=== PATIENT | female | born 1930 | race Caucasian/White ===

== ENCOUNTER 2018-02-14 05:21 | Inpatient (IN) ==
[2018-02-14 05:44] VITALS: BMI 34.0
[2018-02-14] MEDS ORDERED: ACETAMINOPHEN 500 MG TABLET PO ONE (06:00)
[2018-02-14] MEDS ORDERED: FAMOTIDINE PB 20 MG/50 ML BAG IV ONE (06:00)
[2018-02-14] MEDS ORDERED: LIDOCAINE 1% (10mg/ml) 2mL INJ PF SDV ID ONE (06:00)
[2018-02-14] MEDS ORDERED: METOCLOPRAMIDE 10mg/2ml INJECTION IVP ONE (06:00)
[2018-02-14] MEDS ORDERED: ONDANSETRON 4 MG/2 ML INJECTION IVP ONE (06:00)
[2018-02-14] MEDS: NS 1,000 ML IV SCH ×4 (06:07→22:53)
[2018-02-14] MEDS ORDERED: VANCOMYCIN 1,000 MG INJECTION ONE (06:13)
[2018-02-14] MEDS: NOZIN NASAL SWAB NAS SCH ×6 (06:13→21:12)
[2018-02-14] MEDS ORDERED: CEFAZOLIN 1 G INJECTION IVP ONE (06:21)
[2018-02-14] MEDS ORDERED: MIDAZOLAM 2mg/2ml INJECTION ONE (07:01)
[2018-02-14] MEDS ORDERED: PROPOFOL 500 MG/50 ML VIAL ONE (07:05)
[2018-02-14] MEDS ORDERED: BUPIVACAINE 0.5% (5mg/ml) PF 30ml INJ SDV ONE (07:07)
[2018-02-14] MEDS ORDERED: LIDOCAINE 2% (100mg/5mL) 5ml PF SDV ONE ×2 (07:07→07:23)
[2018-02-14] MEDS ORDERED: PHENYLEPHRINE INJ 10 MG/ML VIAL IV ONE (07:50)
[2018-02-14] MEDS ORDERED: EPINEPHrine PF 0.25 MG, BUPIVACAINE 0.25% PF 30 ML, KETOROLAC INJ 60 MG in NS 30 ML OPSITE ONE (08:00)
[2018-02-14] MEDS ORDERED: VANCOMYCIN 1,000 MG INJECTION IAR ONE (08:15)
--- NOTE | 2018-02-14 08:43 | Anesthesia Preoperative Report ---
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 NPO Since Date: 02/13/18 NPO Since Time: 23:00 Allergies/Adverse Reactions: Allergies Allergy/AdvReac Type Severity Reaction Status Date / Time silver sulfadiazine Allergy Rash Verified 02/14/18 06:29 [From Silvadene] Sulfa (Sulfonamide Allergy Rash Verified 02/14/18 06:30 Antibiotics) atorvastatin [From Lipitor] AdvReac Muscle Pain Verified 02/14/18 06:29 - Vital Signs Vital Signs: Temperature 97.9 F 02/14/18 05:43 Pulse Rate 94 02/14/18 06:35 Respiratory Rate 15 02/14/18 05:43 Blood Pressure 168/76 H 02/14/18 06:35 Pulse Oximetry 92 02/14/18 05:43 Height and Weight: Height 4 ft 10 in Weight 74 kg Body Mass Index 34.0 - Medications Inpatient Medications: Current Medications Epinephrine HCl 0.25 mg/Bupivacaine HCl 30 ml/Ketorolac Tromethamine 60 mg/ Sodium Chloride 62.25 mls @ 1 mls/hr OPSITE INTRAOP ONE PRN Reason: Protocol Stop: 02/16/18 22:14 Last Admin: 02/14/18 08:30 Dose: 1 mls/hr Sodium Chloride (Normal Saline) 1,000 mls @ 50 mls/hr IV .Q20H [facility] Last Admin: 02/14/18 08:08 Dose: 50 mls/hr Isopropyl Alcohol (Nozin Nasal Swab) 1 each EMIL Q1M IMAN Stop: 02/14/18 09:18 Last Admin: 02/14/18 06:20 Dose: 1 each Sodium Chloride (Iv Flush) 10 - 80 ml IV PRN PRN PRN Reason: Flushing Tranexamic Acid (Cyklokapron) 1,000 mg TOP INTRAOP ONE Stop: 02/14/18 09:03 Last Admin: 02/14/18 08:30 Dose: 1,000 mg Home Medications: Home Medications Medication Instructions Recorded Confirmed Type Amaryl (glimepiride) 4 mg tablet 4 mg PO BID tab 09/24/17 02/14/18 History Glucophage (metformin) 1,000 mg 1,000 mg PO BID tab 09/24/17 02/14/18 History tablet Hyzaar (losartan 100 1 tab PO HS tab 09/24/17 02/14/18 History mg-hydrochlorothiazide 12.5 mg) tablet Norvasc (amlodipine) 5 mg tablet 5 mg PO DAILY tab 09/24/17 02/14/18 History Zocor (simvastatin) 40 mg tablet 40 mg PO HS 09/24/17 02/14/18 History chondroitin sulfate A sodium 400 600 mg PO DAILY cap 09/24/17 02/14/18 History mg capsule glucosamine 1,500 mg PO DAILY tab 09/24/17 02/14/18 History HCl-methylsulfonylmethane 750 mg-750 mg tablet levothyroxine (Tirosint) 100 mcg 100 mcg PO HS cap 09/24/17 02/14/18 History capsule multivit with 1 tab PO DAILY tab 09/24/17 02/14/18 History hwjguhhf-fqul-EF-lutein 8 mg iron-400 mcg-300 mcg tablet CloNIDine [Catapres] 0.1 mg PO BID 01/30/18 02/14/18 History Latanoprost [Latanoprost] 1 drop EACH EYE HS 01/30/18 02/14/18 History Organic Sulfur Msm 1,000 mg PO DAILY 01/30/18 02/14/18 History ergocalciferol (vitamin D2) 50,000 50,000 unit PO DAILY #2 cap 01/30/18 Rx unit capsule Aspirin/Calcium Carbonate/Mag 325 mg PO BID 02/05/18 02/14/18 History [Aspirin Buffered 325 mg Tab] Oxymetazoline Nasal [place] [Afrin 2 spray EA NOSTRIL BID 02/05/18 02/14/18 History Nasal [place]] - Medical History Respiratory: DENIES: Sleep Apnea Cardiovascular: Reports: Hypertension, High Cholesterol DENIES: Angina Gastrointestional: DENIES: Gastroesophageal Reflux Disease Neuro/Musculoskeletal: Reports: [email or web address].[email or web address] Renal/Endocrine: Reports: Diabetes Mellitus Type 2, Thyroid Disease ( hypothyroidism) Other History: Comment Only: Anesthesia Reactions (NO KNOWN BLOOD RELATION ISSUES) - Surgical History HEENT Surgeries: Reports: Eye Surgery (radha cataract ext with IOL) Anesthesia Reactions: None Hx Family Anesthesia Reaction: No History of Motion Sickness: No - Social History Smoking Status: Never smoker Hx Chewing Tobacco Use: No Second Hand Exposure: No Substance Use Type: does not use Alcohol Intake Frequency: does not drink - Pertinent Findings Laboratory: CBC and BMP 02/14/18 06:00 02/14/18 06:00 BMP 02/14/18 06:00 Sodium 143 Potassium 4.0 Chloride 103 Carbon Dioxide 28 BUN 28.0 H Creatinine 0.8 Glucose 142 H Calcium 10.3 H Liver Function 02/14/18 Range/Units 06:00 Total Bilirubin 0.30 (0.20-1.30) MG/DL AST 24 (14-36) U/L ALT 21 (1-35) U/L Alkaline Phosphatase 43 (38-126) U/L Albumin 4.6 (3.5-5.0) g/dL EKG: Sinus Tachycardia - Physical Exam Respiratory Exam: Present: lungs clear, bilateral breath sounds equal Cardiovascular Exam: Present: regular rate and rhythm - Airway Assessment Mallampati Score: II TMD: 3 Fingerbreadths Neck Extension: good Overall Assessment: no airway concerns - ASA ASA Score: 3 - Plan Anesthesia: General TIVA, Neuroaxial Regional/Trunk Block: Spinal - Discussion Discussion: Discussed risks/options/alternatives of anesthesia and questions answered. Patient consents. Nursing pain assessment noted. Present for Discussion: family member (daughter) Attestation Statement: Prior to the delivery of any anesthetic medication, I examined the patient, developed the plan, obtained the patient's consent and discussed the risk and benefits of the procedure with the patient/guardian. - Additional Information Seen by Anesthesia: Yes
--- NOTE | 2018-02-14 08:48 | Operative Note ---
- Procedure Preoperative Diagnosis: Right knee primary degenerative joint disease Postoperative Diagnosis: Same as preoperative diagnosis. Surgeon: Matt Grace MD Finance Officer: Amisha Ames Complications: None. Anesthesia: Spinal. Estimated Blood Loss: See Anesthesia Record. Fluids: Please see Anesthesia Record. Description of Procedure: Mrs. Rogers and her right knee were identified and marked in the preoperative holding area. She was brought back to the operating suite. Spinal anesthetic was administered and she was placed supine on the operating table. The right lower extremity was prepped and draped in my normal sterile fashion. Timeout was performed. The C2FO robotic arm was used during the surgery. She has severe fixed varus deformity with a flexion contracture 10. A standard anterior midline incision followed by medial parapatellar arthrotomy was performed. Anterior fat pad and meniscus were removed. The patella was everted and a patellar osteotomy was performed leaving 14 mm of bone. She had complete loss of cartilage medially also a large lesions in the lateral femoral condyle. Tibial and femoral arrays and checkpoints were placed both within the original incision. The bone was then registered with the C2FO robot. Osteophytes were removed and gaps were captured both 90 and 0 with correction. Given her severe deformity we templated for 18 millimeters laterally in both flexion and extension and 16 mm medially in both flexion and extension The C2FO robotic arm was then used to assist with the bone cuts. Posterior osteophytes and remaining meniscus were removed. Trial components were placed. We used a 3 femur and a 4 tibia with a 9 mm spacer and a 32 patella. She tracked well and was well balanced throughout range of motion. The leg was exsanguinated and the tourniquet inflated to 250 mmHg. The tibia was stamped. The bone was prepared for cementing and components were cemented into place and allowed to cure in extension. The tourniquet was let down and hemostasis obtained with electrocautery. The knee was ranged one more time to ensure good stability, balance and patellar tracking. 1 g of vancomycin powder was then placed into the knee joint. The capsulotomy was then closed with #1 Vicryl. I then left my dental assistant teacher to close the subcutaneous tissue with 2-0 Vicryl and 0 V-lock. Running 4-0 Monocryl will be used in the subcuticular layer. Dermabond will be used on the skin followed by sterile dressing. After drapes are removed patient will be taken to recovery room under the care of anesthesia.
[2018-02-14] MEDS ORDERED: SALINE FLUSH 10ml SYRINGE IV PRN (09:02)
[2018-02-14] MEDS ORDERED: TRANEXAMIC ACID 1,000 MG/10 ML VIAL TOP ONE (09:02)
--- NOTE | 2018-02-14 09:49 | XRay Report ---
Indication: postoperative image PROCEDURE: XR knee RT 2V: Encounter: Initial Comparison: None. Findings: The patient has had a right knee total knee arthroplasty. The alignment is anatomic without subluxation. The mineralization appears preserved. There is no radiopaque foreign body. Impression: Anatomic alignment status post right knee arthroplasty. .
[2018-02-14] MEDS ORDERED: TRAMADOL 50 MG TABLET PO PRN (10:08)
[2018-02-14] MEDS ORDERED: NOZIN NASAL SWAB NAS ONE (10:08)
[2018-02-14] MEDS ORDERED: DiphenhydrAMINE 25 MG CAPSULE PO PRN (10:08)
[2018-02-14] MEDS ORDERED: ONDANSETRON 4 MG/2 ML INJECTION IVP PRN (10:08)
[2018-02-14] MEDS ORDERED: DiphenhydrAMINE 50 MG/ML INJECTION IVP PRN (10:08)
[2018-02-14] MEDS ORDERED: LORazepam 1 MG TABLET PO PRN (10:08)
--- NOTE | 2018-02-14 11:09 | Anesthesia Procedure Note ---
Peripheral Nerve Blockade - Procedure Physician: Rush Grace MD Date: 02/14/18 Surgical Procedure: right TKA Discussion: Discussed risks/options/alternatives of anesthesia and questions answered. Patient consents. Nursing pain assessment noted. Block Start: 09:25 Block Stop: 09:27 Blocked Employed: Adductor Canal Indication: Post-Operative Pain Approach: Right Side Confirmed Position: Supine Patient: Consent, Risks/Benefits Discussed, Informed, Post Block Act. Discussed IV Sedation: No (spinal active) Initial Vital Signs: Temperature 97.9 F 02/14/18 05:43 Temperature Source Oral 02/14/18 05:43 Pulse Rate 109 H 02/14/18 05:43 Respiratory Rate 15 02/14/18 05:43 Blood Pressure 191/85 H 02/14/18 05:43 Blood Pressure Mean 120 02/14/18 05:43 Blood Pressure Position Sitting 02/14/18 05:43 Pulse Oximetry 92 02/14/18 05:43 Oxygen Delivery Method 02/14/18 05:43 Post Vital Signs: Temperature 96.2 F L 02/14/18 10:12 Pulse Rate 97 02/14/18 10:42 Respiratory Rate 16 02/14/18 10:42 Blood Pressure 184/75 H 02/14/18 10:42 Pulse Oximetry 94 02/14/18 10:42 Initial Pain Pain Score: 0 Post Block Pain Score: 0 Prep: Chlorhexadine/ETOH Ultrasound Used?: Yes - Injectate Ropivacaine (%): 0.5 Ropivacaine (mL): 30 Was Epi 1:200,000 Used?: No Injection: Injection made incrementally with constant monitoring and negative aspiration every 5 ml
--- NOTE | 2018-02-14 12:23 | Anesthesia Postoperative Note ---
- Date and Time Date: 02/14/18 Time: 09:54 - Status Patient Participated in Evaluation: Patient Participated in Person Vital Signs: Temperature 96.2 F L 02/14/18 10:12 Pulse Rate 106 H 02/14/18 11:57 Respiratory Rate 16 02/14/18 11:57 Blood Pressure 173/86 H 02/14/18 11:57 Pulse Oximetry 96 02/14/18 11:57 Respiratory Function: Airway Patent Cardiovascular Function: Regular Pulse Mental Status: Alert and Oriented Pain Intensity: 0 Hydration: Taking PO Fluids Complications During Recover: None Apparent - Follow-Up Instructions Instructions: Per Surgeon
[2018-02-14] MEDS: ACETAMINOPHEN 325 MG TABLET PO SCH ×3 (13:13→20:51)
[2018-02-14] MEDS: CEFAZOLIN 1 G in NS 100 ML IV SCH ×2 (14:19→22:52)
[2018-02-14] MEDS: INSULIN ASPART 100unit/ml INJECTION SQ PRN (14:28)
[2018-02-14] MEDS: DOCUSATE SODIUM 100 MG CAPSULE PO SCH (20:52)
[2018-02-14] MEDS: ASPIRIN *EC* 81 MG TABLET PO SCH (20:53)
[2018-02-14] MEDS ORDERED: SIMVASTATIN 40 MG TABLET PO SCH (21:00)
[2018-02-14] MEDS ORDERED: SENNOSIDES 8.6 MG TABLET PO SCH (21:00)
[2018-02-14] MEDS ORDERED: LOSARTAN/HCTZ 100/12.5mg TABLET PO SCH (21:00)
[2018-02-14] MEDS ORDERED: LEVOTHYROXINE 100 MCG TABLET PO SCH (21:00)
[2018-02-15] MEDS: NS 1,000 ML IV SCH ×2 (03:34→11:11)
[2018-02-15] MEDS: NOZIN NASAL SWAB NAS SCH (05:38)
[2018-02-15] MEDS: INSULIN ASPART 100unit/ml INJECTION SQ PRN ×2 (05:56→09:42)
[2018-02-15 07:12] VITALS: RESP 16
--- NOTE | 2018-02-15 07:55 | Orthopedic Progress Note ---
Date: Date: 02/15/18 Time: 0750 Subjective/Severity of Illness: Karen is sitting up in the chair this morning. States she did well overnight, pain has been well controlled. She has been up ambulating. BG overnight 170-269, she received SS Novolog. Fasting BG 156. She reports a good appetite, no nausea, chest pain, soa. Orthopedic Exam Vital signs: Temperature 97.4 F 02/15/18 07:06 Pulse Rate 97 02/15/18 07:06 Respiratory Rate 16 02/15/18 07:06 Blood Pressure 184/89 H 02/15/18 07:06 Pulse Oximetry 95 02/15/18 07:06 - Constitutional General Appearance: Present: alert, orientated x3, no acute distress, well developed, well nourished - Respiratory Exam Present: CTA bilaterally, non-labored - Cardiovascular Exam Present: Regular Rate/Rhythm, pedal pulses intact - Extremities Exam Present: pulses intact - Dressing Dressing: dry, intact, bloody drainage (scant bloody drainage middle of mepilex , outlined.) - Integumentary Exam Present: pink, warm, dry - Neurological Exam Present: intact to light touch, no deficits - Psychiatric Exam Present: alert, oriented, normal affect - Labs Result Diagrams: 02/15/18 04:07 02/15/18 04:07 Abnormal lab results 02/15/18 02/15/18 Range/Units 04:07 04:07 Hgb 9.5 L D (12-16) GM/DL Hct 30.1 L D (36-46) % BUN 24.0 H (7-17) MG/DL BUN/Creatinine Ratio 30 H (6-26) RATIO Glucose 156 H (65-110) MG/DL H & H 02/14/18 02/15/18 Range/Units 06:00 04:07 Hgb 11.5 L 9.5 L D (12-16) GM/DL Hct 35.6 L 30.1 L D (36-46) % Orthopedic Assessment and Plan (1) Primary osteoarthritis of right knee Status: Acute Assessment and Plan: Current anti-coagulation protocol ASA 81mg BID x 6 weeks for VTE prophylaxis. SCD's for added protection. PT/OT services to improve independent function. Discharge Planning per Case Management. (2) Diabetes mellitus type 2 in obese Status: Acute Assessment and Plan: Will restart her metformin and Amaryl this morning. - Anticoagulation Therapy Anticoagulation: ASA 81 mg PO BID x6 weeks Hospital Course Summary Disclaimer: The visit summary below is not to be considered part of the above Progress Note.
[2018-02-15] MEDS ORDERED: GLIMEPIRIDE 4 MG TABLET PO SCH (08:15)
[2018-02-15] MEDS ORDERED: POLYETHYL GLYCOL 3350 17gm PACKET PO SCH (09:00)
[2018-02-15] MEDS ORDERED: AMLODIPINE 5 MG TABLET PO SCH (09:00)
[2018-02-15] MEDS ORDERED: METFORMIN 1,000 MG TABLET PO SCH (09:00)
[2018-02-15] MEDS ORDERED: SENNOSIDES 8.6 MG TABLET PO PRN (09:14)
[2018-02-15] MEDS: ACETAMINOPHEN 325 MG TABLET PO SCH ×2 (09:20→12:29)
[2018-02-15] MEDS: DOCUSATE SODIUM 100 MG CAPSULE PO SCH (09:20)
[2018-02-15] MEDS: ASPIRIN *EC* 81 MG TABLET PO SCH (09:20)
[2018-02-15 12:27] VITALS: BP 160/80
--- NOTE | 2018-02-15 12:29 | Orthopedic Progress Note ---
Date: Date: 02/15/18 Time: 1225 Subjective/Severity of Illness: Karen is sitting up in the chair this afternoon. Pain has been well controlled with Tylenol. She has been up ambulating and is adequately mobile. She reports a good appetite, no nausea, chest pain, soa. She had been taking a 325mg ASA BID at home for "heart health". She chose to do this on her own and was not part of a PCP or cardiac recommendation. She notes she has had some nose bleeds recently. I discussed we typically use ASA 81mg PO BID for DVT prevention and Dr. Grace has indicated this dose is just as effective with less chance of bleeding. She was okay with switching to the lower dose for DVT prevention. Blood pressure was re taken while I was in the room, it is now 160/80, and she denies chest pain, vision change or headache. Orthopedic Exam Vital signs: Temperature 97.4 F 02/15/18 07:06 Pulse Rate 97 02/15/18 07:06 Respiratory Rate 16 02/15/18 07:06 Blood Pressure 184/89 H 02/15/18 07:06 Pulse Oximetry 95 02/15/18 07:06 - Constitutional General Appearance: Present: alert, orientated x3, no acute distress, well developed, well nourished - Respiratory Exam Present: CTA bilaterally, non-labored - Cardiovascular Exam Present: Regular Rate/Rhythm, pedal pulses intact - Extremities Exam Present: pulses intact - Dressing Dressing: dry, intact, bloody drainage (scant bloody drainage middle of mepilex , outlined. Checked again, and stable as compared to morning, not outside outlined area.) - Integumentary Exam Present: pink, warm, dry - Neurological Exam Present: intact to light touch, no deficits - Psychiatric Exam Present: alert, oriented, normal affect - Labs Result Diagrams: 02/15/18 04:07 02/15/18 04:07 Abnormal lab results 02/15/18 02/15/18 Range/Units 04:07 04:07 Hgb 9.5 L D (12-16) GM/DL Hct 30.1 L D (36-46) % BUN 24.0 H (7-17) MG/DL BUN/Creatinine Ratio 30 H (6-26) RATIO Glucose 156 H (65-110) MG/DL H & H 02/14/18 02/15/18 Range/Units 06:00 04:07 Hgb 11.5 L 9.5 L D (12-16) GM/DL Hct 35.6 L 30.1 L D (36-46) % Orthopedic Assessment and Plan (1) Primary osteoarthritis of right knee Status: Acute Assessment and Plan: Current anti-coagulation protocol ASA 81mg BID x 6 weeks for VTE prophylaxis. SCD's for added protection. PT/OT services to improve independent function. Discharge Planning per Case Management. (2) Diabetes mellitus type 2 in obese Status: Acute Assessment and Plan: Will restart her metformin and Amaryl this morning. - Anticoagulation Therapy Anticoagulation: ASA 81 mg PO BID x6 weeks Hospital Course Summary Disclaimer: The visit summary below is not to be considered part of the above Progress Note.
[2018-02-15 12:30] VITALS: PULSE 98; TEMP 97.9; O2SAT 98
--- NOTE | 2018-02-15 12:32 | Discharge Summary ---
Orthopedic Discharge Info Date of admission: 02/14/18 10:16 Primary care physician: Steve Swift II, MD Attending Physician: Rush Grace MD Consults: 02/14/18 05:51 Consult to Anesthesiology [CONS] Routine Reason For Exam: Preoperative Assessment 02/14/18 10:08 Case Management Consult [CONS] Routine Reason For Exam: Discharge Planning DME-Walker [CONS] Routine Height: 4 ft 10 in Weight: 163 lb 2.273 oz Total Joint Outpatient Therapy [CONS] Routine Comment: Remove dressing in 2 weeks - Discharge Diagnosis (1) Primary osteoarthritis of right knee Status: Acute (2) Diabetes mellitus type 2 in obese Status: Acute - Procedures Procedures: Right TKA - Laboratory Result Diagrams: 02/15/18 04:07 02/15/18 04:07 Laboratory: Abnormal lab results 02/15/18 02/15/18 Range/Units 04:07 04:07 Hgb 9.5 L D (12-16) GM/DL Hct 30.1 L D (36-46) % BUN 24.0 H (7-17) MG/DL BUN/Creatinine Ratio 30 H (6-26) RATIO Glucose 156 H (65-110) MG/DL H & H 02/14/18 02/15/18 Range/Units 06:00 04:07 Hgb 11.5 L 9.5 L D (12-16) GM/DL Hct 35.6 L 30.1 L D (36-46) % Orthopedic Discharge HPI - HPI Comments This patient was admitted for elective surgical tx of end stage degenerative joint disease that failed to respond to conservative treatment. Further details of this is found in the admission H&P. Orthopedic Hospital Course Hospital course: 02/15/18 12:31 After appropriate preoperative clearance and signing of operative consent, the patient was given IV antibiotics, according to orthopedic protocol. The patient was taken to the operating room and underwent elective joint arthroplasty. Following surgery, antibiotics were discontinued less than 24 hours according to joint protocol. Appropriate anticoagulants were initiated and SCDs added for DVT prevention. The dressing was clean, dry, and intact. Pain control was obtained via multimodal approach. Bowel motivation addressed with scheduled and PRN medications. Early mobilization was initiated through PT services. Discharge arrangements made by a collaborative effort between the patient and Case Management. Follow-up is scheduled in 2-3 weeks. Discharge instructions given by orthopedic providers and nursing staff at discharge. Discharge condition was good. Care extended to > 2 midnight stays?: No Discharge Plan - Med Rec/Dispo Referrals/Follow Up: Rush Grace MD [Physician] - 03/11/18 10:30 am Sly Instructions: [facility] Ortho Postop Instructions Prescriptions: New Acetaminophen [Tylenol] 650 mg PO QID tab PEG 3350 17gm PACKET [Miralax] 17 gm PO DAILY packet Tramadol [Ultram] 50 - 100 mg PO Q6H PRN #60 tab PRN Reason: Pain Aspirin *EC* [Ecotrin] 81 mg PO BID #84 tab Continue Latanoprost 1 drop EACH EYE HS Organic Sulfur Msm 1,000 mg PO DAILY Oxymetazoline Nasal [place] [Afrin Nasal [place]] 2 spray EA NOSTRIL BID CloNIDine [Catapres] 0.1 mg PO BID Amaryl (glimepiride) 4 mg tablet 4 mg PO BID tab Zocor (simvastatin) 40 mg tablet 40 mg PO HS Norvasc (amlodipine) 5 mg tablet 5 mg PO DAILY tab multivit with tjhpsaqt-biun-BA-lutein 8 mg iron-400 mcg-300 mcg tablet 1 tab PO DAILY tab Hyzaar (losartan 100 mg-hydrochlorothiazide 12.5 mg) tablet 1 tab PO HS tab levothyroxine (Tirosint) 100 mcg capsule 100 mcg PO HS cap Glucophage (metformin) 1,000 mg tablet 1,000 mg PO BID tab ergocalciferol (vitamin D2) 50,000 unit capsule 50,000 unit PO DAILY #2 cap Discontinued Aspirin/Calcium Carbonate/Mag [Aspirin Buffered 325 mg Tab] 325 mg PO BID No Action chondroitin sulfate A sodium 400 mg capsule 600 mg PO DAILY cap glucosamine HCl-methylsulfonylmethane 750 mg-750 mg tablet 1,500 mg PO DAILY tab - Disposition 01 Discharged Home, Self-Care - Dismissal Complete Discharge Instructions are:: Complete
[2018-02-16] MEDS ORDERED: BISACODYL 10 MG SUPPOSITORY RECTALLY SCH (20:00)
== END 2018-02-15 13:28 | disposition home health service (06) | DRG 470 ==
LOC: SUR 05:21 → NMC.PERIOP 05:23 → SRG 10:04
PROVIDERS: ADMIT Orthopaedic Surgery; ATTEND Orthopaedic Surgery

== ENCOUNTER 2018-06-11 06:38 | Inpatient (IN) ==
--- NOTE | 2018-06-05 15:55 | History & Physical Update ---
- History and Physical Update Date: 06/05/18 Update: I evaluated this patient and found no changes in the history and clinical exam findings. The treatment plan and recommendations are also unchanged from the previous documentation. Karen is 88 years old and has multi medical conditions which put her at increased risk of and extended stay after surgery. In addition to being 88 years old, she has diabetes, HTN, and stage III kidney disease. I anticipate her ASA score to be at least a 3 or 4. I expect her stay to be greater than 2 midnights and therefore will change her to an inpatient status.
[~2018-06-11 06:38] MED LIST: ACETAMINOPHEN 500 MG TABLET PO ONE; FAMOTIDINE PB 20 MG/50 ML BAG IV ONE; LIDOCAINE 1% (10mg/ml) 2mL INJ PF SDV ID ONE; METOCLOPRAMIDE 10mg/2ml INJECTION IVP ONE; ONDANSETRON 4 MG/2 ML INJECTION IVP ONE; TRANEXAMIC ACID 1,000 MG in NS 100 ML IV ONE
[2018-06-11] MEDS ORDERED: VANCOMYCIN 1,000 MG INJECTION ONE (06:59)
[2018-06-11] MEDS ORDERED: TRANEXAMIC ACID 1,000 MG in NS 100 ML IV ONE (07:00)
[2018-06-11 07:15] VITALS: BMI 33.1
[2018-06-11] MEDS: NS 1,000 ML IV SCH ×5 (07:35→23:41)
[2018-06-11] MEDS: NOZIN NASAL SWAB NAS SCH ×5 (07:43→21:00)
[2018-06-11] MEDS ORDERED: EPINEPHrine PF 0.25 MG, BUPIVACAINE 0.25% PF 30 ML, KETOROLAC INJ 60 MG in NS 30 ML OPSITE ONE (08:00)
[2018-06-11] MEDS ORDERED: VANCOMYCIN 1,000 MG INJECTION IAR ONE (08:03)
--- NOTE | 2018-06-11 08:23 | Anesthesia Preoperative Report ---
Anesthesia Preoperative Record - Date and Time Date: 06/11/18 Preoperative Diagnosis: Lt TKA M17.12 Proposed Procedure: Left total Knee NPO Since Date: 06/11/18 NPO Since Time: 00:00 Allergies/Adverse Reactions: Allergies Allergy/AdvReac Type Severity Reaction Status Date / Time silver sulfadiazine Allergy Mild Rash Verified 06/11/18 07:33 Sulfa (Sulfonamide Allergy Mild Rash Verified 06/11/18 07:33 Antibiotics) atorvastatin AdvReac Mild Muscle Pain Verified 06/11/18 07:33 - Vital Signs Vital Signs: Temperature 98.2 F 06/11/18 07:14 Pulse Rate 97 06/11/18 07:14 Respiratory Rate 16 06/11/18 07:14 Blood Pressure 156/71 H 06/11/18 07:14 Pulse Oximetry 92 06/11/18 07:14 Height and Weight: Height 1.47 m Weight 72 kg Body Mass Index 33.1 - Medications Inpatient Medications: Current Medications Cefazolin Sodium (Kefzol 1 Gm Vial) 1 g IVP PREOP ONE Stop: 06/11/18 08:31 Sodium Chloride (Normal Saline) 1,000 mls @ 50 mls/hr IV .Q20H IMAN Last Admin: 06/11/18 07:35 Dose: 50 mls/hr Isopropyl Alcohol (Nozin Nasal Swab) 1 each EMIL Q1M IMAN Stop: 06/11/18 16:03 Last Admin: 06/11/18 07:46 Dose: 1 each Sodium Chloride (Iv Flush) 10 - 80 ml IV PRN PRN PRN Reason: Flushing Home Medications: Home Medications Medication Instructions Recorded Confirmed Type Amaryl (glimepiride) 4 mg tablet 4 mg PO BID tab 09/24/17 06/11/18 History Glucophage (metformin) 1,000 mg 1,000 mg PO BID tab 09/24/17 06/11/18 History tablet Hyzaar (losartan 100 1 tab PO HS tab 09/24/17 06/11/18 History mg-hydrochlorothiazide 12.5 mg) tablet Norvasc (amlodipine) 5 mg tablet 5 mg PO DAILY tab 09/24/17 06/11/18 History Zocor (simvastatin) 40 mg tablet 40 mg PO HS 09/24/17 06/11/18 History chondroitin sulfate A sodium 400 600 mg PO DAILY cap 09/24/17 06/11/18 History mg capsule glucosamine 1,500 mg PO DAILY tab 09/24/17 06/11/18 History HCl-methylsulfonylmethane 750 mg-750 mg tablet levothyroxine (Tirosint) 100 mcg 100 mcg PO HS cap 09/24/17 06/11/18 History capsule multivit with 1 tab PO DAILY tab 09/24/17 06/11/18 History vizbjxes-hmcp-ME-lutein 8 mg iron-400 mcg-300 mcg tablet CloNIDine [Catapres] 0.1 mg PO BID 01/30/18 06/11/18 History Latanoprost 1 drop EACH EYE HS 01/30/18 06/11/18 History Organic Sulfur Msm 1,000 mg PO DAILY 01/30/18 06/11/18 History ergocalciferol (vitamin D2) 50,000 50,000 unit PO DAILY #2 cap 01/30/18 Rx unit capsule Is Patient on Beta Aliyah?: Yes - Medical History Respiratory: DENIES: Sleep Apnea Cardiovascular: Reports: Hypertension, High Cholesterol DENIES: Angina Gastrointestional: DENIES: Gastroesophageal Reflux Disease Renal/Endocrine: Reports: Diabetes Mellitus Type 2, Thyroid Disease ( HYPOTHYROIDISM) - Surgical History HEENT Surgeries: Reports: Eye Surgery (Cataract OU) Musculoskeletal Surgery/Tx: Reports: Total Knee Replacement (RT) Anesthesia Reactions: None Hx Family Anesthesia Reaction: No - Social History Smoking Status: Never smoker Hx Chewing Tobacco Use: No Second Hand Exposure: No Substance Use Type: does not use Alcohol Intake Frequency: does not drink - Pertinent Findings Laboratory: CBC and BMP 06/11/18 07:24 06/11/18 07:24 BMP 06/11/18 07:24 Sodium 138 Potassium 4.3 Chloride 97 L Carbon Dioxide 28 BUN 31.0 H Creatinine 0.9 Glucose 163 H Calcium 10.4 H Liver Function 06/11/18 Range/Units 07:24 Total Bilirubin 0.40 (0.20-1.30) MG/DL AST 26 (14-36) U/L ALT 18 (1-35) U/L Alkaline Phosphatase 48 (38-126) U/L Albumin 4.8 (3.5-5.0) g/dL EKG: Sinus Rhythm - Physical Exam Respiratory Exam: Present: lungs clear Cardiovascular Exam: Present: regular rate and rhythm - Airway Assessment Mallampati Score: II TMD: 3 Fingerbreadths Overall Assessment: no airway concerns - ASA ASA Score: 3 - Plan Anesthesia: Neuroaxial Regional/Trunk Block: Spinal - Discussion Discussion: Discussed risks/options/alternatives of anesthesia and questions answered. Patient consents. Nursing pain assessment noted. Present for Discussion: spouse Attestation Statement: Prior to the delivery of any anesthetic medication, I examined the patient, developed the plan, obtained the patient's consent and discussed the risk and benefits of the procedure with the patient/guardian. - Additional Information Seen by Anesthesia: Yes
[2018-06-11] MEDS ORDERED: CEFAZOLIN 1 G INJECTION IVP ONE (08:30)
[2018-06-11] MEDS ORDERED: MIDAZOLAM 2mg/2ml INJECTION ONE (08:51)
[2018-06-11] MEDS ORDERED: BUPIVACAINE 0.75%/DEXTROSE 8.5% SPINAL 2 ML AMPULE IJ ONE (08:51)
[2018-06-11] MEDS ORDERED: PROPOFOL 60 ML ONE (08:51)
[2018-06-11] MEDS ORDERED: LIDOCAINE 2% (100mg/5mL) 5ml PF SDV ONE (08:51)
[2018-06-11] MEDS ORDERED: EPHEDRINE 50mg/ml INJECTION ONE (09:23)
[2018-06-11] MEDS ORDERED: NEOSTIGMINE 10 MG/10 ML INJECTION ONE (09:32)
[2018-06-11] MEDS ORDERED: SALINE FLUSH 10ml SYRINGE ONE (09:33)
--- NOTE | 2018-06-11 10:57 | Operative Note ---
- Procedure Preoperative Diagnosis: Left knee primary degenerative joint disease Postoperative Diagnosis: Same as preoperative diagnosis. Surgeon: Matt Grace MD [place] Roofer: Edgardo Kim Complications: None. Anesthesia: Spinal. Estimated Blood Loss: See Anesthesia Record. Fluids: Please see Anesthesia Record. Description of Procedure: Mrs. Rogers and her left knee were identified and marked in the preoperative holding area. She was brought back to the operating suite. Spinal anesthetic was administered and she was placed supine on the operating table. The left lower extremity was prepped and draped in my normal sterile fashion. Timeout was performed. The Goowy robotic arm was used during the surgery. She had a severe varus deformity. A standard anterior midline incision followed by medial parapatellar arthrotomy was performed. Anterior fat pad and meniscus were removed. The patella was everted and a patella osteotomy was performed leaving 12 mm of bone. Tibial and femoral arrays and checkpoints were placed both within the original incision. The bone was then registered with the Goowy robot. Osteophytes were removed and gaps were captured both 90 and 0 degrees with correction. Given her severe deformity we cut the tibia and 2 of varus and then recaptured at 90 and 0. The femoral component was externally rotated 3 into more degrees of varus or placed onto the femoral component. The Goowy robotic arm was then used to assist with the bone cuts. Posterior osteophytes and remaining meniscus were removed. Trial components were placed. We used a 3 femur and a 3 tibia with a 13 mm spacer and a 29 patella. She tracked well and was well balanced throughout range of motion. The arrays were then removed. The tibia was then stamped the proper rotation. The bone was prepared for cementing I then cemented the components into place and allowed them to cure in extension. Hemostasis was obtained with electrocautery. After the cement had cured the knee again was taken through range of motion and was well balanced and tracked well. After a final thorough irrigation with normal saline as well as Betadine 1 g vancomycin powder was placed into the knee joint. We then closed the capsule with #1 Vicryl. I then left my assistant boys track coach closed the subcutaneous tissue with both 2-0 Vicryl in an interrupted fashion. The subcutaneous tissue closed with a 4-0 Monocryl followed by Dermabond. Mediplex dressing will be placed and the patient will be taken back to the recovery room under the care of anesthesia.
[2018-06-11] MEDS ORDERED: PROPOFOL 20 ML ONE (10:58)
[2018-06-11] MEDS ORDERED: ROPIVACAINE 0.5% (5mg/ml) 30ml INJ ONE (11:03)
--- NOTE | 2018-06-11 12:02 | Anesthesia Procedure Note ---
Peripheral Nerve Blockade - Procedure Physician: Rush Grace MD Date: 06/11/18 Surgical Procedure: Left TKA Discussion: Discussed risks/options/alternatives of anesthesia and questions answered. Patient consents. Nursing pain assessment noted. Block Start: 11:31 Block Stop: 11:33 Block Employed: Adductor Canal-Left, Infiltration between Popliteal Artery and Capsule of the Knee-Left Indication: Post-Operative Pain Approach: Left Side Confirmed Patient: Consent IV Sedation: No Initial Vital Signs: Temperature 98.2 F 06/11/18 07:14 Temperature Source Oral 06/11/18 07:14 Pulse Rate 97 06/11/18 07:14 Respiratory Rate 16 06/11/18 07:14 Blood Pressure 156/71 H 06/11/18 07:14 Blood Pressure Mean 99 06/11/18 07:14 Blood Pressure Position Sitting 06/11/18 07:14 Pulse Oximetry 92 06/11/18 07:14 Oxygen Delivery Method 06/11/18 07:14 Post Vital Signs: Temperature 97.4 F 06/11/18 11:26 Pulse Rate 90 06/11/18 11:55 Respiratory Rate 12 06/11/18 11:55 Blood Pressure 104/53 06/11/18 11:55 Pulse Oximetry 97 06/11/18 11:55 Initial Pain Pain Score: 0 Post Block Pain Score: 0 Prep: Chlorhexadine/ETOH Ultrasound Used?: Yes - Injectate Ropivacaine (%): 0.5 Ropivacaine (mL): 20 Injection: Injection made incrementally with constant monitoring and aspiration every ml
--- NOTE | 2018-06-11 12:03 | Anesthesia Postoperative Note ---
- Date and Time Date: 06/11/18 Time: 12:02 - Status Patient Participated in Evaluation: Patient Participated in Person Vital Signs: Temperature 97.4 F 06/11/18 11:26 Pulse Rate 90 06/11/18 11:55 Respiratory Rate 12 06/11/18 11:55 Blood Pressure 104/53 06/11/18 11:55 Pulse Oximetry 97 06/11/18 11:55 Respiratory Function: Airway Patent Cardiovascular Function: Regular Pulse EKG: Sinus Rhythm Mental Status: Alert and Oriented Pain Intensity: 0 Hydration: IV Infusing Nausea/Vomiting: None Complications During Recover: None Apparent - Follow-Up Instructions Instructions: Per Surgeon
--- NOTE | 2018-06-11 12:07 | XRay Report ---
Indication: postoperative image PROCEDURE: XR knee LT 2V: Encounter: Initial Comparison: None Findings: Postoperative changes of left total knee replacement are seen. There is expected postoperative subcutaneous gas. No evidence of hardware failure or acute fracture. No retained radiopaque surgical instruments or sponges. Overlying material causing artifact. Impression: New left total knee prosthesis without evidence of immediate complication. .
[2018-06-11] MEDS ORDERED: DiphenhydrAMINE 50 MG/ML INJECTION IVP PRN (12:12)
[2018-06-11] MEDS ORDERED: DiphenhydrAMINE 25 MG CAPSULE PO PRN (12:12)
[2018-06-11] MEDS ORDERED: TRAMADOL 50 MG TABLET PO PRN (12:12)
[2018-06-11] MEDS ORDERED: ONDANSETRON 4 MG/2 ML INJECTION IVP PRN (12:12)
[2018-06-11] MEDS ORDERED: LORazepam 1 MG TABLET PO PRN (12:12)
[2018-06-11] MEDS ORDERED: NOZIN NASAL SWAB NAS ONE (12:12)
[2018-06-11] MEDS ORDERED: FALL RISK - PHARMACY CONSULT MC ONE (12:34)
[2018-06-11] MEDS: ACETAMINOPHEN 325 MG TABLET PO SCH ×3 (14:02→21:00)
[2018-06-11] MEDS ORDERED: SALINE FLUSH 10ml SYRINGE IV PRN (15:48)
[2018-06-11] MEDS: INSULIN ASPART 100unit/ml INJECTION SQ PRN ×2 (15:49→20:59)
[2018-06-11] MEDS: CEFAZOLIN 1 G in NS 100 ML IV SCH (17:19)
[2018-06-11] MEDS: DOCUSATE SODIUM 100 MG CAPSULE PO SCH (20:59)
[2018-06-11] MEDS ORDERED: LEVOTHYROXINE 100 MCG TABLET PO SCH (21:00)
[2018-06-11] MEDS: ASPIRIN *EC* 81 MG TABLET PO SCH (21:00)
[2018-06-11] MEDS ORDERED: SIMVASTATIN 40 MG TABLET PO SCH (21:00)
[2018-06-11] MEDS ORDERED: LATANOPROST 0.005% EYE DROPS 2.5ml EACH EYE SCH (21:00)
[2018-06-11] MEDS ORDERED: LEVOTHYROXINE SODIUM 100 MCG PO SCH (21:00)
[2018-06-11] MEDS ORDERED: SENNOSIDES 8.6 MG TABLET PO SCH (21:00)
[2018-06-11] MEDS ORDERED: LOSARTAN/HCTZ 100/12.5mg TABLET PO SCH (21:00)
[2018-06-12] MEDS: CEFAZOLIN 1 G in NS 100 ML IV SCH (00:04)
[2018-06-12] MEDS: NS 1,000 ML IV SCH (00:52)
[2018-06-12] MEDS: NOZIN NASAL SWAB NAS SCH ×3 (04:19→13:16)
[2018-06-12 07:24] VITALS: RESP 16
--- NOTE | 2018-06-12 08:25 | Orthopedic Progress Note ---
Date: Date: 06/12/18 Time: 817 Subjective/Severity of Illness: Karen is sitting up in the chair this morning. Has been up ambulating. Reports her right knee pain has been well controlled. Denies any CP, SOA, nausea. Tolerating PO well. Hgb 10.4. BG 108 fasting, 125- 220 with Novolog sliding scale yesterday. She is on Amaryl and Metformin at home, will restart this morning. Orthopedic Exam Vital signs: Temperature 97.4 F 06/12/18 07:23 Pulse Rate 107 H 06/12/18 07:23 Respiratory Rate 16 06/12/18 07:23 Blood Pressure 164/83 H 06/12/18 07:23 Pulse Oximetry 96 06/12/18 07:23 - Constitutional General Appearance: Present: alert, orientated x3, cooperative, no acute distress - Respiratory Exam Present: non-labored - Cardiovascular Exam Present: pedal pulses intact - Abdominal Exam Present: soft. Absent: distended - Extremities Exam Present: pulses intact - Dressing Dressing: dry, intact, no drainage Comments: mepilex left knee - Integumentary Exam Present: pink, warm, dry - Neurological Exam Present: intact to light touch, no deficits - Psychiatric Exam Present: alert, oriented - Labs Result Diagrams: 06/12/18 04:24 06/12/18 04:24 Abnormal lab results 06/12/18 06/12/18 Range/Units 04:24 04:24 Hgb 10.4 L D (12-16) GM/DL BUN 23.0 H (7-17) MG/DL H & H 06/11/18 06/12/18 Range/Units 07:24 04:24 Hgb 12.1 10.4 L D (12-16) GM/DL Hct 37.3 (36-46) % Orthopedic Assessment and Plan (1) Status post left knee replacement Status: Acute Assessment and Plan: Current anti-coagulation protocol for VTE prophylaxis. SCD's for added protection PT/OT services to improve independent function. Discharge Planning per Case Management. - Anticoagulation Therapy Anticoagulation: ASA 81 mg PO BID x6 weeks - Additional Diagnoses Hypertension: stable, resume medications Diabetes: resume oral medications Anemia: no intervention required, patient was asymptomatic, labs monitored Hospital Course Summary Disclaimer: The visit summary below is not to be considered part of the above Progress Note.
[2018-06-12] MEDS: DOCUSATE SODIUM 100 MG CAPSULE PO SCH (08:28)
[2018-06-12] MEDS: ACETAMINOPHEN 325 MG TABLET PO SCH ×2 (08:29→13:16)
[2018-06-12] MEDS: ASPIRIN *EC* 81 MG TABLET PO SCH (08:29)
[2018-06-12] MEDS ORDERED: GLIMEPIRIDE 4 MG TABLET PO SCH ×2 (08:30→09:00)
[2018-06-12] MEDS ORDERED: METFORMIN 1,000 MG TABLET PO SCH ×2 (08:30→09:00)
[2018-06-12] MEDS ORDERED: AMLODIPINE 5 MG TABLET PO SCH (09:00)
[2018-06-12] MEDS ORDERED: POLYETHYL GLYCOL 3350 17gm PACKET PO SCH (09:00)
[2018-06-12] MEDS ORDERED: INSULIN ASPART 100unit/ml INJECTION SQ PRN (11:15)
[2018-06-12] MEDS ORDERED: SENNOSIDES 8.6 MG TABLET PO PRN (11:17)
[2018-06-12 11:21] VITALS: O2SAT 98
[2018-06-12 11:57] VITALS: BP 157/76; PULSE 110; TEMP 97.6
--- NOTE | 2018-06-12 16:05 | Discharge Summary ---
Letter to PCP Cover Letter: Karen Rogers underwent an elective total joint arthroplasty by Dr. Grace. Aspirin 81mg BID therapy was initiated for DVT prophylaxis. Aspirin should be given BID for six weeks postoperatively. Details for their hospitalization can be found in the discharge summary attached. The patient is scheduled to see you one week after surgery for a post-operative check. I hope you find the discharge summary informative and helpful as you resume care of your patient after their surgery. If our office can be of any assistance, please feel free to contact us any time. Orthopedic Discharge Info Date of admission: 06/11/18 06:38 Anticipated date of discharge: 06/12/18 Primary care physician: Steve Swift II, MD Attending Physician: Rush Grace MD Consults: 06/11/18 06:51 Consult to Anesthesiology [CONS] Routine Reason For Exam: Preoperative Assessment 06/11/18 12:12 Case Management Consult [CONS] Routine Reason For Exam: Discharge Planning DME-Walker [CONS] Routine Height: 4 ft 10 in Weight: 72 kg Total Joint Outpatient Therapy [CONS] Routine Comment: Remove dressing in 2 weeks - Discharge Diagnosis (1) Status post left knee replacement Status: Acute - Procedures Procedures: Procedures Replacement of Right Knee Joint with Synthetic Substitute, Cemented, Open Approach (02/14/18) Robotic Assisted Procedure of Lower Extremity, Open Approach (02/14/18) - Laboratory Result Diagrams: 06/12/18 04:24 06/12/18 04:24 Laboratory: Abnormal lab results 06/12/18 06/12/18 Range/Units 04:24 04:24 Hgb 10.4 L D (12-16) GM/DL BUN 23.0 H (7-17) MG/DL H & H 06/11/18 06/12/18 Range/Units 07:24 04:24 Hgb 12.1 10.4 L D (12-16) GM/DL Hct 37.3 (36-46) % Orthopedic Discharge HPI - HPI Comments This patient was admitted for elective surgical tx of end stage degenerative joint disease that failed to respond to conservative treatment. Further details of this is found in the admission H&P. Orthopedic Hospital Course Hospital course: After appropriate preoperative clearance and signing of operative consent, the patient was given IV antibiotics, according to orthopedic protocol. The patient was taken to the operating room and underwent elective joint arthroplasty. Following surgery, antibiotics were discontinued less than 24 hours according to joint protocol. Appropriate anticoagulants were initiated and SCDs added for DVT prevention. The dressing was clean, dry, and intact. Pain control was obtained via multimodal approach. Bowel motivation addressed with scheduled and PRN medications. Early mobilization was initiated through PT services. Discharge arrangements made by a collaborative effort between the patient and Case Management. Home medications were restarted for HTN, BP well controlled with some elevation thought secondary to pain. Pain controlled with Tramadol prn, Tylenol scheduled. DM II (A1C 8.3 pre-op). Novolog SS was initiated until patient tolerate PO well then transitioned to home Amaryl and Metformin. BG 108 fasting, 2hr pp 125- 200s. CKD stage 3 remained well controlled with GFR 59, electrolytes wnl. Post op anemia with Hgb 10.4, patient was asymptomatic. No acute intervention required. Patient is scheduled for medical follow up with PCP 1 week post-op for above co- morbidities. Follow-up is scheduled in 2-3 weeks. Discharge instructions given by orthopedic providers and nursing staff at discharge. Discharge condition was good. Care extended to > 2 midnight stays?: No Discharge Plan - Med Rec/Dispo Referrals/Follow Up: Amisha Ames APRN [Advanced Practice Nurse] - 07/03/18 2:00 pm Steve Swift II, MD [Primary Care Provider] - 06/19/18 11:15 am S[place]ructions: [facility] [place] Instructions Prescriptions: New Acetaminophen [Tylenol] 650 mg PO QID tab Aspirin *EC* [Ecotrin] 81 mg PO BID tab Docusate Sodium [Colace] 100 mg PO BID cap Milk of Magnesia [Mom] 30 ml PO DAILY udc PEG 3350 17gm PACKET [Miralax] 17 gm PO DAILY packet Tramadol [Ultram] 50 - 100 mg PO Q6H PRN #60 tab PRN Reason: Pain Continue Latanoprost 1 drop EACH EYE HS Organic Sulfur Msm 1,000 mg PO DAILY CloNIDine [Catapres] 0.1 mg PO BID Amaryl (glimepiride) 4 mg tablet 4 mg PO BID tab Zocor (simvastatin) 40 mg tablet 40 mg PO HS Norvasc (amlodipine) 5 mg tablet 5 mg PO DAILY tab multivit with [id number] 8 mg iron-400 mcg-300 mcg tablet 1 tab PO DAILY tab Hyzaar (losartan 100 mg-hydrochlorothiazide 12.5 mg) tablet 1 tab PO HS tab levothyroxine (Tirosint) 100 mcg capsule 100 mcg PO HS cap Glucophage (metformin) 1,000 mg tablet 1,000 mg PO BID tab ergocalciferol (vitamin D2) 50,000 unit capsule 50,000 unit PO DAILY #2 cap No Action chondroitin sulfate A sodium 400 mg capsule 600 mg PO DAILY cap glucosamine HCl-methylsulfonylmethane 750 mg-750 mg tablet 1,500 mg PO DAILY tab - Disposition 01 Discharged Home, Self-Care - Dismissal Complete Discharge Instructions are:: Complete
[2018-06-13] MEDS ORDERED: BISACODYL 10 MG SUPPOSITORY RECTALLY SCH (20:00)
== END 2018-06-12 15:20 | disposition home health service (06) | DRG 470 ==
LOC: NMC.PERIOP 06:38 → EDSTATUS 09:40 → SRG 12:15
PROVIDERS: ADMIT Orthopaedic Surgery; ATTEND Orthopaedic Surgery